=== PATIENT | male | born 1980 | race Caucasian/White ===

== ENCOUNTER 2020-08-08 14:18 | Emergency (ER) | payer BC, SELFPAY ==
[2020-08-08] VITALS (8 sets, daily range): BP systolic 127–183; BP diastolic 82–117; PULSE 88–123; RESP 16–18; TEMP 36.6–37.3; O2SAT 95–98; BMI 33.3
--- NOTE | 2020-08-08 14:16 | ECG_ITS ---
APPROVED REPORT Exam: Resting ECG HR:121 bpm ECG Measurements Heart Rate 121 AXES NJ 164 P 35 QRSd 80 QRS 12 QT 304 T 21 QTc 431 Conclusion Sinus tachycardia Otherwise normal ECG Electronically signed by : Dipesh Valdes, 08/09/2020 20:28:13
--- NOTE | 2020-08-08 14:24 | [facility].EDGENADL ---
ED Disposition Clinical Impression: Atypical chest pain, Hypertensive urgency Disposition: Home, Self-Care Condition on Discharge: Good Referrals: Nora Rico [Primary Care Provider] - 3 days Time of Disposition: 16:48 - Critical Care Critical Care Time: No Attestation: On , the high probability of a clinically significant, sudden or life threatening deterioration of the following system(s) required my full and direct attention, intervention and personal management. The time I documented below is in addition to time spent performing reported procedures but includes the following listed in this critical care notation. Medical Decision Making - Medical Records Medical records reviewed: Yes: I reviewed the patient's medical records. - Chandu Inquiry Pt receiving controlled substance: No Vital Signs: 08/08/20 14:19 08/08/20 14:22 08/08/20 14:30 Temperature 99.1 F Temperature Source Oral Pulse Rate 120 H 112 H Pulse Rate [Right Radial] 120 H Respiratory Rate 18 18 18 Blood Pressure 183/117 H 172/116 H Blood Pressure [Right Arm] 183/117 H Blood Pressure Mean 139 134 Blood Pressure Mean [Right Arm] 139 Blood Pressure Source [Right Arm] Automatic Cuff Blood Pressure Position [Right Arm] Sitting 02 Sat by Pulse Oximetry 96 96 95 Oxygen Delivery Method Room Air 08/08/20 14:49 08/08/20 15:01 08/08/20 15:30 Temperature Temperature Source Pulse Rate 123 H 103 H 101 H Pulse Rate [Right Radial] Respiratory Rate 18 16 18 Blood Pressure 140/110 H 128/87 127/82 Blood Pressure [Right Arm] Blood Pressure Mean 111 97 Blood Pressure Mean [Right Arm] Blood Pressure Source [Right Arm] Blood Pressure Position [Right Arm] 02 Sat by Pulse Oximetry 96 96 96 Oxygen Delivery Method Room Air 08/08/20 16:00 Temperature Temperature Source Pulse Rate 88 Pulse Rate [Right Radial] Respiratory Rate 18 Blood Pressure 135/84 Blood Pressure [Right Arm] Blood Pressure Mean 101 Blood Pressure Mean [Right Arm] Blood Pressure Source [Right Arm] Blood Pressure Position [Right Arm] 02 Sat by Pulse Oximetry 97 Oxygen Delivery Method - Lab Data Lab results reviewed: Yes: I reviewed the patient's lab results. Lab Results 08/08/20 14:25: WBC 15.4 H, RBC 4.91, Hgb 16.4, Hct 47.6, MCV 96.9 H, MCH 33.3 H, MCHC 34.4, RDW 12.9, Plt Count 226, MPV 7.9, Neut % (Auto) 70.6, Lymph % (Auto) 23.2, Marion % (Auto) 4.5, Eos % (Auto) 1.2, Baso % (Auto) 0.5, Neut # (Auto) 10.9 H, Lymph # (Auto) 3.6, Marion # (Auto) 0.7, Eos # (Auto) 0.2, Baso # (Auto) 0.1, Total Counted 100, Neutrophils % (Manual) 68, Lymphocytes % (Manual) 22, Monocytes % (Manual) 9, Eosinophils % (Manual) 1, Platelet Estimate Normal, RBC Morphology Normal 08/08/20 14:25: Sodium 140, Potassium 3.9, Chloride 101, Carbon Dioxide 26, Anion Gap 16.9 H, BUN 9, Creatinine 0.70, Estimated Creat Clear 229, Estimated GFR 124, Est GFR ( Amer) 150, Glucose 109 H, Calcium 10.4 H, Troponin I < 0.01 Result diagrams: 08/08/20 14:25 08/08/20 14:25 Orders (Tests/Meds): ED MEDICATIONS Generic Name Dose Route Start Last Admin Trade Name Freq PRN Reason Stop Dose Admin Nitroglycerin 0.4 mg 08/08/20 14:38 08/08/20 14:39 Nitroglycerin 0.4mg Sl Tablet SL 09/07/20 14:37 0.4 mg [id number] PRN Administration Chest Pain Discontinued Medications Generic Name Dose Route Start Last Admin Trade Name Freq PRN Reason Stop Dose Admin Aspirin 324 mg 08/08/20 14:38 08/08/20 14:40 Aspirin 81mg Chewable Tablet PO 08/08/20 14:39 324 mg ONCE ONE Administration Belladonna Alkaloids 60 ml 08/08/20 15:41 08/08/20 15:47 Gi Cocktail 60ml Udc PO 08/08/20 15:42 60 ml ONCE ONE Administration Lactated Ringer's 1,000 mls @ 999 mls/hr 08/08/20 15:30 08/08/20 15:47 Lactated Ringer's 1000 Ml Bag IV 08/08/20 16:30 999 mls/hr .[id number] COLEEN Administration ORDERS Category Date Time Status Troponin I Q3H Lab
--- NOTE | 2020-08-08 14:25 | XR_ITS ---
PROCEDURE INFORMATION: Exam: XR Chest Exam date and time: 08/08/2020 2:25 PM Age: 40 years old Clinical indication: Chest pain; Patient HX: Smoker; Additional info: Cp TECHNIQUE: Imaging protocol: XR of the chest. Views: 1 view. COMPARISON: No relevant prior studies available. FINDINGS: Lungs: Unremarkable. No consolidation. Pleural spaces: Unremarkable. No pleural effusion. No pneumothorax. Heart/Mediastinum: Unremarkable. No cardiomegaly. Bones/joints: Unremarkable. IMPRESSION: No acute findings.
[2020-08-08 14:43] LABS: Basophils # 0.1 K/mm3 (0-0.2); Basophils % 0.5 % (0.1-2.0); Eosinophils # 0.2 K/mm3 (0.0-0.4); Eosinophils % 1.2 % (0.1-12.0); Hematocrit 47.6 % (42.0-52.0); Hemoglobin 16.4 g/dL (14.1-18.0); Lymphocytes # 3.6 K/mm3 (0.7-4.5); Lymphocytes % 23.2 % (10-50); Mean Corpuscular HGB Conc 34.4 g/dL (31.8-35.4); Mean Corpuscular Hemoglobin 33.3 pg (27.0-31.2); Mean Corpuscular Volume 96.9 fl (80-94); Mean Platelet Volume 7.9 fl (7.4-10.4); Monocytes # 0.7 K/mm3 (0.1-1.0); Monocytes % 4.5 % (1.7-9.3); Neutrophils # 10.9 K/mm3 (1.8-7.8); Neutrophils % 70.6 % (37.0-80.0); Platelet Count 226 K/mm3 (142-424); Red Blood Count 4.91 M/mm3 (4.60-6.20); Red Cell Distribution Width 12.9 % (11.5-17.5); White Blood Count 15.4 K/mm3 (4.8-10.8)
[2020-08-08 14:45] LABS: MANUAL DIFFERENTIAL MANUAL DIFFERENTIAL (MANUAL DIFF)
[2020-08-08 14:47] LABS: Chloride 101 mmol/L (98-107); Sodium 140 mmol/L (136-145)
[2020-08-08 14:48] LABS: Potassium 3.9 mmoL/L (3.5-5.1)
[2020-08-08 14:50] LABS: Blood Urea Nitrogen 9 mg/dl (9-20); Creatinine Clearance Estimated 229 mL/min (50-200); Estimated Glomerular Filt Rate 124 ml/min (>60); GFR (African American) 150 ML/MIN (>60)
[2020-08-08 14:51] LABS: Anion Gap 16.9 mEq/L (5-15); Calcium 10.4 mg/dl (8.4-10.2); Carbon Dioxide 26 mmol/L (22.0-30.0); Glucose 109 mg/dl (74-100)
[2020-08-08 15:00] LABS: Eosinophils % 1 % (0-3); Lymphocytes % 22 % (10-50); Monocytes % 9 % (2-9); Neutrophils % 68 % (42-76); Platelet Estimate Normal; RBC Morphology Normal; Total Cells Counted 100
[2020-08-08 15:06] LABS: Troponin I < 0.01 ng/ml (0.00-0.034)
== END 2020-08-08 17:04 | disposition home or self-care (01) ==
PROVIDERS: Emergency Provider Family Medicine; PCP Family Medicine
DX: R07.89 Other chest pain (principal); I16.0 Hypertensive urgency; F17.210 Nicotine dependence, cigarettes, uncomplicated; F10.10 Alcohol abuse, uncomplicated
CPT/HCPCS: 71045; 80048; 84484; 85007; 85025; 93005; 96365; 99282

== ENCOUNTER 2023-10-06 18:00 | Outpatient (CLI) | payer BC, SELFPAY ==
[2023-10-06 18:53] LABS: Basophils # 0.1 K/mm3 (0-0.2); Basophils % 0.6 % (0.1-2.0); Eosinophils # 0.2 K/mm3 (0.0-0.4); Eosinophils % 1.7 % (0.1-12.0); Hematocrit 49.1 % (42.0-52.0); Hemoglobin 16.5 g/dL (14.1-18.0); Lymphocytes # 2.7 K/mm3 (0.7-4.5); Lymphocytes % 29.5 % (10-50); Mean Corpuscular HGB Conc 33.7 g/dL (31.8-35.4); Mean Corpuscular Hemoglobin 34.7 pg (27.0-31.2); Mean Platelet Volume 9.4 fl (7.4-10.4); Monocytes # 0.6 K/mm3 (0.1-1.0); Monocytes % 6.1 % (1.7-9.3); Neutrophils # 5.6 K/mm3 (1.8-7.8); Platelet Count 244 K/mm3 (142-424); Red Blood Count 4.77 M/mm3 (4.60-6.20); Red Cell Distribution Width 13.4 % (11.5-17.5)
[2023-10-06 19:41] LABS: Alanine Aminotransferase 48 U/L (12-78); Albumin Level 4.9 g/dl (3.5-5.0); Albumin/Globulin Ratio 1.7 (1.1-1.8); Alkaline Phosphatase 74 U/L (38-126); Anion Gap 14.1 mEq/L (5-15); Aspartate Amino Transferase 39 U/L (17-59); Bilirubin,Total 0.5 mg/dl (0.2-1.3); Blood Urea Nitrogen 12 mg/dl (9-20); Calcium 9.6 mg/dl (8.4-10.2); Carbon Dioxide 25 mmol/L (22.0-30.0); Chloride 108 mmol/L (98-107); Chol/HDL Ratio 5.2 (1-3.5); Cholesterol 197 mg/dl (140-200); Estimated Glomerular Filt Rate 122 ml/min (>60); GFR (African American) 148 ML/MIN (>60); Globulin 2.9 g/dL (1.3-3.2); Glucose 91 mg/dl (74-100); HDL Cholesterol 38 mg/dl (40-60); Potassium 4.1 mmoL/L (3.5-5.1); Sodium 143 mmol/L (136-145); Total Protein,Serum 7.8 g/dl (6.3-8.2)
[2023-10-06 19:47] LABS: Triglycerides 427 mg/dl (30-150)
[2023-10-06 19:52] LABS: Direct LDL Cholesterol 111.01 mg/dL (100-129)
[2023-10-06 20:12] LABS: 25-OH Vitamin D, Total 35.9 ng/mL (30-100)
[2023-10-06 20:18] LABS: Hemoglobin A1C 6.8 % (4.0-6.0)
[2023-10-06 20:26] LABS: Thyroid Stimulating Hormone 1.12 uIU/mL (0.465-4.68)
[2023-10-06 20:45] LABS: Vitamin B12 465 pg/mL (239-931)
== END 2023-10-06 23:59 | disposition home or self-care (01) ==
LOC: LAB.DROPOF 10-07 10:32
PROVIDERS: PCP Physician Assistant; Visit Provider Physician Assistant
DX: R53.83 Other fatigue (principal); Z68.34 Body mass index [BMI] 34.0-34.9, adult; E66.9 Obesity, unspecified
CPT/HCPCS: 80050; 80053; 80061; 82306; 82607; 83036; 84443; 85025